=== PATIENT | female | born 1980 | race Caucasian/White ===

== ENCOUNTER 2016-07-27 15:30 | Emergency (ER) | payer MEDICAID ==
[~2016-07-27] VITALS: Ht 167.6 cm; Wt 89.6 kg
[2016-07-27] MEDS ORDERED: SODIUM CHLORIDE FLUSH 10ML SYR IVF ONE (16:00)
[2016-07-27] MEDS ORDERED: SODIUM CHLORIDE 0.9% 1,000ML IVBOLUS ONE (16:00)
[2016-07-27 16:16] LABS: ASPARTATE AMINO TRANSFERASE 19 U/L (15-37); BLOOD UREA NITROGEN 9 mg/dL (7-18)
[2016-07-27] MEDS ORDERED: PREN-1 PO (16:41)
[2016-07-27 19:28] VITALS: BP 111/80
== END 2016-07-27 20:08 | disposition home or self-care (01) ==
LOC: ED 20:02
DX: O20.0 Threatened abortion (principal); Z3A.14 14 weeks gestation of pregnancy; O23.11 Infections of bladder in pregnancy, first trimester; Z87.891 Personal history of nicotine dependence; Z85.41 Personal history of malignant neoplasm of cervix uteri
CPT/HCPCS: 36415; 76805; 80053; 81001; 84702; 85025; 87086

== ENCOUNTER 2016-08-13 17:19 | Emergency (ER) | payer MEDICAID ==
[~2016-08-13] VITALS: Ht 167.6 cm; Wt 89.0 kg
[~2016-08-13 17:19] MED LIST: PREN-1 PO
[2016-08-13] MEDS ORDERED: OMEP20TA62 PO (19:33)
[2016-08-13 20:00] VITALS: BP 111/62
== END 2016-08-13 20:23 | disposition home or self-care (01) ==
LOC: ED 20:10
DX: B37.3 Candidiasis of vulva and vagina (principal); Z88.8 Allergy status to other drugs, medicaments and biological substances
CPT/HCPCS: 81003; 82962; 87210; 87491; 87591; 87808; 99284